=== PATIENT | male | born 1980 | race Caucasian/White ===

== ENCOUNTER 2017-09-06 00:25 | Emergency (ER) | payer MEDICAID | END 2017-09-06 01:30 | disposition home or self-care (01) | LOC: D.ER 00:25 | DX: M54.5 Low back pain (principal); M62.838 Other muscle spasm; I10 Essential (primary) hypertension ==

== ENCOUNTER 2017-11-20 15:32 | Emergency (ER) | payer MEDICAID | END 2017-11-20 16:58 | disposition home or self-care (01) | LOC: D.ER 15:32 | DX: J02.9 Acute pharyngitis, unspecified (principal); I10 Essential (primary) hypertension ==

== ENCOUNTER 2019-02-21 20:09 | Emergency (ER) | payer SELFPAY ==
[~2019-02-21] VITALS: Ht 185.4 cm; Wt 159.1 kg
[2019-02-21 20:13] VITALS: Ht 185.4 cm; Wt 159.1 kg
[2019-02-21] MEDS ORDERED: ACETAMINOPHEN500 M1 PO (20:15)
[2019-02-21] MEDS ORDERED: ADVIL200 MG PO (20:15)
[2019-02-21] MEDS ORDERED: ULTRAM50 MG PO (20:57)
[2019-02-21 21:29] VITALS: BP 160/91
== END 2019-02-21 21:30 | disposition home or self-care (01) ==
LOC: D.ER 20:09
DX: M54.5 Low back pain (principal)